=== PATIENT | female | born 1990 | race Caucasian/White ===

== ENCOUNTER 2016-12-14 14:28 | Emergency (ER) | payer SELFPAY ==
--- NOTE | 2016-12-14 14:44 | ER Document Report ---
ED Medical Screen (RME) - General Stated Complaint: ABDOMNAL PAIN Notes: 26 yo 6 weeks gestation c/o lower abdominal pain and vaginal spotting x 2 days. pain precipitated by argument with with significant other TRAVEL OUTSIDE OF THE [place] IN LAST 30 DAYS: No - Related Data Allergies/Adverse Reactions: No Known Allergies Allergy (Verified 07/22/15 00:12) Past Medical History Musculoskeltal Medical History: Reports Hx Musculoskeletal Deformity - knee problems Past Surgical History: Reports: Hx Oral Surgery - wisdom teeth remove 06/10/15 - Immunizations Immunizations up to date: Yes Hx Diphtheria, Pertussis, Tetanus Vaccination: Yes - 2009
[2016-12-14 14:46] VITALS: BP 106/70
[2016-12-14 15:21] LABS: APPEARANCE,URINE CLOUDY; BILIRUBIN,URINE NEGATIVE (NEGATIVE); GLUCOSE, URINE NEGATIVE (NEGATIVE); KETONES,URINE NEGATIVE (NEGATIVE); LEUKOCYTE ESTERASE,URINE LARGE (NEGATIVE); NITRITE,URINE NEGATIVE (NEGATIVE); PROTEIN,URINE NEGATIVE (NEGATIVE); URINE SPECIFIC GRAVITY 1.005; UROBILINOGEN,URINE NEGATIVE mg/dL (<2.0)
== END 2016-12-14 17:48 | disposition left against medical advice (07) ==
LOC: ER 14:28
DX: R10.30 Lower abdominal pain, unspecified (principal); Z53.20 Procedure and treatment not carried out because of patient's decision for unspecified reasons
CPT/HCPCS: 36415; 81001; 84702; 99281